=== PATIENT | male | born 1940 | race Caucasian/White ===

== ENCOUNTER 2017-03-29 08:18 | Emergency (ER) | payer MEDICAID ==
[~2017-03-29 08:18] MED LIST: ADRENALIN ONE; CALCIUM CHLORIDE IV ONE; D50W (25GM) Syringe IV ONE; SODIUM BICARBONATE IV ONE
--- NOTE | 2017-03-29 08:45 | Emergency Department Report ---
ED CPR HPI - General Chief Complaint: Cardiac Arrest/CPR Stated Complaint: CA Time Seen by Provider: 03/29/17 08:18 Source: EMS Mode of arrival: Stretcher Limitations: Other - History of Present Illness Initial Comments: 77-year-old male with a past medical history CVA with residual right-sided deficit and diabetes with other unknown past medical history presents to the hospital with cardiopulmonary arrest. Last known well time was approximately 7: 20 AM and patient was apparently eating a large sandwich. Patient was then found unresponsive on the floor. EMS arrived to seen at 7:40 AM and patient was apneic and in PEA. Intubation attempted however, they noted a lot of food particles in the airway possibly causing obstruction. He attempted to remove particles, placed a oral airway, and bagged the patient. Patient also had an Accu-Chek in the 50s. He received sodium bicarbonate, 1 amp of D50, and 3 epinephrines prior to arrival. Patient presents apneic with acting bagging taking place and with asystole. Chest compressions continued upon patient arrival. ED Review of Systems ROS: Stated complaint: CA Other details as noted in HPI Comment: Unobtainable due to pts medical conditions ED Physical Exam - General Limitations: Other - Other Other exam information: General: Unresponsive Head exam: Atraumatic Eyes exam: Pupils fixed and dilated ENT: A lot of food in the posterior pharynx noted during intubation. Also mild bloody secretions suspected secondary previous food removal attempt at intubation prior to arrival Neck exam: Normal inspection Respiratory exam: No spontaneous respirations Cardiovascular: Pulseless Abdomen: Soft, nondistended, and nontender, with normal bowel sounds, no rebound, or guarding Extremity: Serrato contracted arm, no spontaneous movement Back: Normal Inspection Neurologic: GCS equals 3 Psychiatric: Unresponsive Skin: Peripheral cyanosis ED Course - Reevaluation(s) Reevaluation #1: 03/29/17 Chest compressions continued upon arrival. Patient was intubated. Addition epinephrine x 3, sodium bicarb x1, and d5o 1 amp. Despite resuscitation efforts patient remained in asystole. Time of 8:28 am. - Intubation Time Out Performed: Yes Laryngoscope: Pnia Size: 4 ET Tube Size: 7.5 Tube Secured Depth (cm): 19 Tube Secured Location: lips Tube Placement Confirmation: visualized tube passing t, equal breath sounds bilat, no breath sounds over epi, confirmation by capnometr Patient Tolerated Procedure: well, no complications Intubation Complications: none Additional Comments: + food particles in posterior airway ED Medical Decision Making - Medical Decision Making Questionable aspiration given a food particles and airway during intubation Despite resuscitation efforts including intubation patient remained in asystole Patient's and daughter informed the patient's and present with farmer and grazier at the bedside - Differential Diagnosis aspiration, airway obstruction, arrhythmia, [place], PE, CVA Critical Care Time: Yes Critical care time in (mins) excluding proc time.: 20 Critical care attestation.: If time is entered above; I have spent that time in minutes in the direct care of this critically ill patient, excluding procedure time. ED Disposition Clinical Impression: Cardiopulmonary arrest Disposition: DC-20 Is pt being admited?: No Condition: Critical Time of Disposition: 08:45
== END 2017-03-29 11:01 ==
LOC: ED 08:18
DX: I46.9 Cardiac arrest, cause unspecified (principal)
CPT/HCPCS: 31500; 92950; 99285; J0171